=== PATIENT | female | born 1990 ===

== ENCOUNTER 2017-09-08 14:00 | Inpatient (IN) | payer OTHER ==
[~2017-09-08] VITALS: Ht 152.4 cm; Wt 59.9 kg
[2017-09-29] MEDS ORDERED: VALTREX1000 MG PO (03:46)
[2017-09-29] MEDS ORDERED: PRENATAL TABLE1 EAC1 PO (03:46)
== END 2017-10-01 12:57 | DRG 775 ==
LOC: LDR 09-29 02:55 → OB/GYN 09-29 20:00 → LDR 09-21 14:00
PROC: 10D07Z6 Extraction of Products of Conception, Vacuum, Via Natural or Artificial Opening (ICD-10-PCS; principal; 2017-09-29)
PROC: 10907ZC Drainage of Amniotic Fluid, Therapeutic from Products of Conception, Via Natural or Artificial Opening (ICD-10-PCS; 2017-09-29)
PROC: 0W8NXZZ Division of Female Perineum, External Approach (ICD-10-PCS; 2017-09-29)
PROC: 3E033VJ Introduction of Other Hormone into Peripheral Vein, Percutaneous Approach (ICD-10-PCS; 2017-09-29)
PROC: 4A1HXCZ Monitoring of Products of Conception, Cardiac Rate, External Approach (ICD-10-PCS; 2017-09-29)
DX: O48.0 Post-term pregnancy (principal); O99.824 Streptococcus B carrier state complicating childbirth; Z3A.40 40 weeks gestation of pregnancy; Z37.0 Single live birth

== ENCOUNTER 2017-09-19 10:59 | Outpatient (CLI) | payer OTHER | END 2017-09-19 12:35 | disposition home or self-care (01) | LOC: NST 10:59 | DX: Z34.83 Encounter for supervision of other normal pregnancy, third trimester (principal) ==

== ENCOUNTER 2017-09-27 16:10 | Outpatient (CLI) | payer OTHER | END 2017-09-27 16:40 | disposition home or self-care (01) | LOC: NST 16:10 | DX: O48.0 Post-term pregnancy (principal); Z34.03 Encounter for supervision of normal first pregnancy, third trimester ==

== ENCOUNTER 2023-11-02 06:36 | Day surgery (SDC) | payer OTHER ==
[2023-10-24 12:06] LABS: HEMATOCRIT 36.1 % (36.0-45.00); HEMOGLOBIN 12.2 g/dL (12.0-15.00); MEAN CELL VOLUME 91.5 fL (80.00-100.00); MEAN CORPUSCULAR HGB CONC 33.9 g/dl (32.0-36.0); PLATELET COUNT 176 K/uL (150-450); RED BLOOD COUNT 3.95 M/uL (4.00-6.00)
[2023-10-24 12:57] LABS: INR 1.06; PARTIAL THROMBOPLASTIN TIME 33.2 SECONDS (22.0-34.0); PROTHROMBIN TIME 11.5 SECONDS (9.0-11.5)
[~2023-11-02 06:36] MED LIST: PRENATAL TABLE1 EAC1 PO; VALTREX1000 MG PO
[2023-11-02 07:48] LABS: ALBUMIN 3.4 gm/dL (3.4-5.0); BILIRUBIN TOTAL 0.3 mg/dL (0.3-1.2); CALCIUM 8.3 mg/dL (8.5-10.1); CREATININE SERUM 0.68 mg/dL (0.55-1.02); GFR 99.65; GLOBULINA 3.9 G/DL (2.4-3.5); POTASSIUM 3.7 mEq/L (3.5-5.1); TOTAL PROTEIN 7.3 gm/dL (6.4-8.2)
[2023-11-02] MEDS ORDERED: POVIDONE-IODINE 118 ML BOTT TOP ONE (12:24)
[2023-11-02] MEDS ORDERED: MORPHINE SULFATE 4 MG/ML VIAL IV PRN (13:15)
[2023-11-02] MEDS ORDERED: PROMETHAZINE HCL 50 MG/ML AMPUL IM ONE (13:15)
== END 2023-11-02 17:05 | disposition home or self-care (01) ==
LOC: CIR.AMB 06:36
PROVIDERS: ATTEND Obstetrics & Gynecology
DX: N84.0 Polyp of corpus uteri (principal)